=== PATIENT | female | born 1980 | race Caucasian/White ===

== ENCOUNTER 2024-01-29 13:04 | Emergency (ER) | payer BC ==
[~2024-01-29] VITALS: Ht 165.1 cm; Wt 99.0 kg
[2024-01-29 13:10] VITALS: O2SAT 98
[2024-01-29 14:45] LABS: HEMATOCRIT. 41.5 % (36.0-48.0); HEMOGLOBIN. 13.8 g/dL (12.0-16.0); MEAN CORPUSCULAR HEMOGLOBIN 30.6 pg (28.0-32.0); MEAN CORPUSCULAR HGB CONC 33.2 g/dL (31.0-37.0); MEAN PLATELET VOLUME 7.7 fl (7.4-10.4); PLATELET 326 x1000/uL (130-400); RED BLOOD CELL COUNT 4.51 mill/uL (4.2-5.4); RED CELL DISTRIBUTION WIDTH 14.5 % (11.6-14.6); WHITE BLOOD COUNT 9.2 x1000/uL (4.5-11.0)
[2024-01-29 14:50] LABS: CHLORIDE 107 mEq/L (98-107); POTASSIUM 4.3 mEq/L (3.5-5.1); SODIUM 139 mEq/L (136-145)
[2024-01-29 14:51] LABS: CALCIUM 9.4 mg/dL (8.7-10.4); CARBON DIOXIDE 25 mEq/L (21-32)
[2024-01-29 14:52] LABS: DIFFERENTIAL COMMENT 1
[2024-01-29 14:56] LABS: CREATININE 0.8 mg/dL (0.6-1.0); GLUCOSE 160 mg/dL (70-105); UREA NITROGEN BLOOD 12 mg/dL (9-23)
[2024-01-29] MEDS: PREDNISONE 20MG TABLET PO STA (15:03)
[2024-01-29] MEDS: IPRATROPIUM BROMIDE (0.02%) 0.5MG/2.5ML NEB HHN STA (15:05)
[2024-01-29 15:06] VITALS: PULSE 76; RESP 18
[2024-01-29] MEDS: ALBUTEROL (0.083%) 2.5MG/3ML NEB HHN SCH (15:06)
[2024-01-29] MEDS: ALBUTEROL (0.083%) 2.5MG/3ML NEB HHN STA (15:06)
[2024-01-29 15:24] LABS: HCG SCREEN NEGATIVE
[2024-01-29 15:39] LABS: PLATELET ESTIMATE NORMAL
[2024-01-29] MEDS ORDERED: P50 MT (15:58)
[2024-01-29] MEDS ORDERED: ALBU6.7H15 INH (15:58)
[2024-01-29 16:05] VITALS: BP 124/80; PULSE 90; RESP 18; TEMP 36.94740; O2SAT 98
== END 2024-01-29 16:06 | disposition home or self-care (01) ==
LOC: ER 14:19
DX: J45.901 Unspecified asthma with (acute) exacerbation (principal); I10 Essential (primary) hypertension; J20.9 Acute bronchitis, unspecified
CPT/HCPCS: 80048; 84703; 83880; 85025; 36415; 71045; 93005; 94644; 99285; J7512; Z7610; 94640